=== PATIENT | male | born 1955 ===

== ENCOUNTER 2023-04-08 09:18 | Outpatient (CLI) | payer OTHER | END 2023-04-08 09:21 | disposition home or self-care (01) | LOC: RAD 09:18 | PROVIDERS: ATTEND Urology | DX: Z01.811 Encounter for preprocedural respiratory examination (principal); C61 Malignant neoplasm of prostate ==

== ENCOUNTER 2023-04-10 07:13 | Outpatient (CLI) | payer OTHER | END 2023-04-10 07:14 | disposition home or self-care (01) | LOC: EKG 07:13 | PROVIDERS: ATTEND Urology | DX: Z01.810 Encounter for preprocedural cardiovascular examination (principal); C61 Malignant neoplasm of prostate ==